=== PATIENT | male | born 2000 | race African-American/Black ===

== ENCOUNTER 2019-02-11 19:17 | Emergency (ER) | payer OTHER ==
--- NOTE | 2019-02-11 19:20 | PDOC ---
Rapid Medical Evaluation Time Seen by Provider: 02/11/19 19:19 Medical Evaluation: Allergies Allergy/AdvReac Type Severity Reaction Status Date / Time No Known Allergies Allergy Verified 06/01/12 15:37 02/11/19 19:19 CC: jaw pain s/p yawning PE: no focal findings. Orders: nothing Patient will proceed to ER for further evaluation. Discharge Disposition - Diagnosis Jaw pain, non-TMJ - Referrals - Patient Instructions - Post Discharge Activity
[2019-02-11 19:55] VITALS: BP 158/90; PULSE 85; TEMP 98.4; BMI 33.5
--- NOTE | 2019-02-11 20:37 | PDOC ---
History of Present Illness - General Chief Complaint: Pain Stated Complaint: PAIN IN MOUTH Time Seen by Provider: 02/11/19 19:19 - History of Present Illness Initial Comments: 02/11/19 20:35 18-year-old male without comorbidities presents for evaluation of right-sided neck pain after a forceful yawn this morning while he was getting out of bed. Past History - Past Medical History Allergies/Adverse Reactions: Allergies Allergy/AdvReac Type Severity Reaction Status Date / Time No Known Allergies Allergy Verified 02/11/19 19:55 Home Medications: Ambulatory Orders Benzonatate [Tessalon] 200 mg PO TID #7 capsule 06/01/12 No Home Medications 0 dose .ROUTE UTDICT 06/01/12 Cyclobenzaprine HCl [Flexeril 10 mg] 10 mg PO HS PRN #10 tablet 02/11/19 Asthma: Yes COPD: No - Psycho Social/Smoking Cessation Hx Smoking Status: No Smoking History: Never smoked Have you smoked in the past 12 months: No Number of Cigarettes Smoked Daily: 0 Information on smoking cessation initiated: No Hx Alcohol Use: No Drug/Substance Use Hx: No Review of Systems - Review of Systems Musculoskeletal: Yes: Muscle Pain, Neck Pain *Physical Exam - Vital Signs Last Vital Signs Temp Pulse Resp BP Pulse Ox 98.4 F 85 18 158/90 99 02/11/19 19:20 02/11/19 19:20 02/11/19 19:20 02/11/19 19:20 02/11/19 19:20 - Physical Exam Comments: 02/11/19 20:36 HEAD: NC/AT EYES: Conjuntiva clear Ears: Canals and TM's normal NOSE: No d/c THROAT: Moist mucous membrances, oral pharanx clear, uvula midline NECK: Supple without adenopathy; there is tenderness about the superior anterior aspect of the right sternocleidomastoid CARDIAC: S1 S2 LUNGS: CTA Full and Equal breath sounds ABDOMEN: Soft NT ND MS: Full ROM in all joints without edema NEUROLOGIC: No gross sensory or motor deficits, NVID SKIN: Normal color and temperature no lesions or rashes Medical Decision Making - Medical Decision Making 02/11/19 20:36 Muscle strain, will treat with Flexeril and follow-up with primary care physician. Discharge - Discharge Information Problems reviewed: Yes Clinical Impression/Diagnosis: Jaw pain, non-TMJ, Muscle strain Condition: Stable Disposition: HOME - Admission No - Additional Discharge Information Prescriptions: Cyclobenzaprine HCl [Flexeril 10 mg] 10 mg PO HS PRN #10 tablet PRN Reason: Muscle Spasms - Follow up/Referral Referrals: Camryn Guillaume MD [Staff Physician] - - Patient Discharge Instructions Additional Instructions: Please take the muscle relaxer 1 tablet before bedtime and will make you sleepy. This should help with your pain. You may also take Tylenol and Motrin as directed. Return to the emergency room for worsening symptoms. Please, without fail please follow-up with your primary care physician in 1 to 2 days for further evaluation and treatment options. - Post Discharge Activity
== END 2019-02-11 20:45 | disposition home or self-care (01) ==
LOC: JER 19:17
DX: R68.84 Jaw pain (principal); T14.8XXA Other injury of unspecified body region, initial encounter; X58.XXXA Exposure to other specified factors, initial encounter; Y93.89 Activity, other specified; Y92.9 Unspecified place or not applicable
CPT/HCPCS: 99281-25

== ENCOUNTER 2020-09-28 13:39 | Emergency (ER) | payer OTHER ==
[2020-09-28 13:50] VITALS: BP 130/78; PULSE 95; TEMP 98.4; BMI 39.0
== END 2020-09-28 14:52 | disposition home or self-care (01) ==
LOC: JERFT 13:39
DX: S90.32XA Contusion of left foot, initial encounter (principal)
CPT/HCPCS: 73610-TC-LT-FY; 73630-TC-LT; 99284-25

== ENCOUNTER 2022-02-25 18:03 | Emergency (ER) | payer OTHER ==
[2022-02-25 18:07] VITALS: BP 146/82; PULSE 74; RESP 18; TEMP 97; BMI 36.2
[2022-02-25] MEDS ORDERED: IBUPROFEN 600 MG TABLET (FP) PO ONE ×2 (19:42→20:12)
== END 2022-02-25 20:22 | disposition home or self-care (01) ==
LOC: JERFT 18:03 → JER 18:03 → JERFT 20:22
DX: S39.012A Strain of muscle, fascia and tendon of lower back, initial encounter (principal); V49.40XA Driver injured in collision with unspecified motor vehicles in traffic accident, initial encounter
CPT/HCPCS: 72070-TC-FY; 72100-TC-FY; 99284-25